=== PATIENT | female | born 1955 | race Caucasian/White ===

== ENCOUNTER 2019-10-30 14:07 | Emergency (ER) | payer OTHER, SELFPAY ==
[2019-10-30] VITALS (14 sets, daily range): BP systolic 139–168; BP diastolic 79–107; PULSE 64–95; RESP 14–33; TEMP 36.8; O2SAT 93–98; BMI 32.5
--- NOTE | 2019-10-30 14:33 | DI.RAD.S_ITS ---
PROCEDURE: XR CHEST 1V INDICATIONS: cough, palpitations TECHNIQUE: One view of the chest was acquired. COMPARISON: None. FINDINGS: Surgical changes and devices: None. Lungs and pleura: An incomplete inspiratory result is noted, causing a crowded appearance to the lung markings. No focal infiltrates are seen. No pneumothorax or significant pleural effusions are seen. Mediastinum: The cardiac contours are within normal limits. The aorta demonstrates calcification and tortuosity. Bones and chest wall: Age-appropriate bony degenerative changes are seen. No suspicious bony lesions. Overlying soft tissues appear unremarkable. IMPRESSION: Unremarkable portable chest for age, without focal infiltrates seen. Dictated by: Rico Ojeda M.D. on 10/30/2019 at 15:00 Approved by: Rico Ojeda M.D. on 10/30/2019 at 15:00
--- NOTE | 2019-10-30 14:35 | DI.US.S_ITS ---
PROCEDURE: US PERIPH VENOUS UP EXTREM LT INDICATIONS: LEFT ARM REDNESS, PAIN TECHNIQUE: Real-time imaging, as well as color and pulse Doppler interrogation, was performed of the left upper extremity deep veins from the inferior neck to the antecubital fossa. COMPARISON: [facility], CR, XR CHEST 1V, 10/30/2019, 14:57. FINDINGS: The internal jugular vein, visualized portions of the subclavian vein, axillary, and brachial veins are free of intraluminal thrombus. Where physically possible, the veins are normally compressible. Color and pulse Doppler demonstrate normal intraluminal flow, with expected phasicity and pulsatility. Additional scanning of the cephalic and basilic veins of the superficial system demonstrate normal compressibility, without thrombus. Soft tissue edema can be seen at the area of clinical redness. IMPRESSION: Negative for deep venous thrombosis. Note: Concordant preliminary findings given by the driller hand upon the completion of the examination to JANES Epps at 4:22 PM on October 30, 2019. Dictated by: Rico Ojeda M.D. on 10/30/2019 at 15:32 Approved by: Rico Ojeda M.D. on 10/30/2019 at 15:33
[2019-10-30 14:47] LABS: INR 0.9 (0.9-1.3); Prothrombin Time 10.7 SECONDS (10.1-12.7)
[2019-10-30 14:49] LABS: PTT Partial Thromboplastin Tim 30 SECONDS (26.4-36.2)
[2019-10-30 14:50] LABS: Alanine Aminotransferase 24 IU/L (<35); Albumin 4.5 g/dL (3.5-5.0); Albumin Globulin Ratio 1.3 (1.0-2.8); Alkaline Phosphatase 78 U/L (38-126); Aspartate Aminotransferase 32 IU/L (14-36); BUN Creatinine Ratio 21.2 (6-22); Bilirubin Total 0.5 mg/dL (0.2-1.3); Blood Urea Nitrogen 18 mg/dL (7-17); Calcium 10.7 mg/dL (8.4-10.2); Carbon Dioxide 25 mmol/L (22-32); Chloride 107 mmol/L (98-107); Creatine Kinase 39 U/L (30-135); Estimated Glomerular Filt Rate > 60.0 mL/min (>60); Globulin 3.4 g/dL (1.7-4.1); Glucose 93 mg/dL (80-110); HEMOLYSIS 27 (0-50); Lipase 80 U/L (23-300); Potassium 4.1 mmol/L (3.4-5.1); Sodium 140 mmol/L (137-145); Total Protein 7.9 g/dL (6.3-8.2)
[2019-10-30 14:51] LABS: Lactate (Lactic Acid) 0.8 mmol/L (0.7-2.1)
[2019-10-30 14:52] LABS: Bacteria Urine None Seen; RBC Urine None Seen (0-5/HPF); WBC Urine None Seen (0-5/HPF)
[2019-10-30 14:52] LABS: Add Manual Diff / Slide Review NO; Basophils Absolute Auto 100 /uL (0-100); Basophils Percent Auto 1.4 % (0-2); Eosinophils Absolute Auto 100 /uL (0-450); Eosinophils Percent Auto 1.1 % (2-4); Hematocrit 43.9 % (36-46); Lymphocytes Absolute Auto 2300 /uL (1100-4500); Lymphocytes Percent Auto 32.2 % (25-40); Mean Corpuscular HGB Conc 34.1 % (30-36); Mean Corpuscular Hemoglobin 28.8 PG (26-34); Mean Corpuscular Volume 84.5 fL (80-100); Monocytes Absolute Auto 500 /uL (0-900); Monocytes Percent Auto 6.5 % (3-14); Neutrophils Absolute Auto 4200 /uL (1500-7000); Neutrophils Percent Auto 58.8 % (50-75); Platelet Count 138 X10^3/uL (150-400); Red Cell Distribution Width 13.4 % (11.6-14.8); White Blood Cell Count 7.1 X10^3/uL (4.5-11.0)
[2019-10-30 15:02] LABS: NT-proBNP (BNP-Adult 18+) 270 pg/mL (<125); Troponin I < 0.012 ng/mL (0.01-0.034)
[2019-10-30 15:02] LABS: Appearance Urine UA CLEAR; Bilirubin Urine UA NEGATIVE (NEGATIVE); Color Urine UA YELLOW; Glucose Urine UA NEGATIVE (Negative); Ketones Urine UA NEGATIVE (NEGATIVE); Leukocyte Esterase Urine UA NEGATIVE (NEGATIVE); Nitrite Urine UA NEGATIVE (Negative); Occult Blood Urine UA NEGATIVE (Negative); Protein Urine UA NEGATIVE (Negative); Specific Gravity Urine UA 1.015 (1.000-1.035); Urobilinogen Urine UA 0.2 E.U./dL (0.2)
[2019-10-30 15:03] LABS: Culture Indicated Urine Cult Not Indicated; pH Urine UA 7.5 (4.5-8.0)
[2019-10-30 15:32] LABS: Procalcitonin < 0.05 ng/mL (<0.5)
[2019-10-30 15:37] LABS: D Dimer 209 ng/mL (<230)
[2019-10-30] MEDS: KETOROLAC 60 MG/2 ML VIAL 15 MG IV (16:13)
[2019-10-30] MEDS: ACETAMINOPHEN 325 MG TABLET 650 MG PO (16:13)
[2019-10-30] MEDS: SODIUM CHLORIDE 0.9% 1,000 ML 125 ML IV (16:14)
[2019-10-30 18:08] LABS: Creatine Kinase 36 U/L (30-135)
[2019-10-30 18:21] LABS: Troponin I < 0.012 ng/mL (0.01-0.034)
[2019-10-30] MEDS: DOXYCYCLINE HYCLATE 100 MG TABLET PO (18:42)
--- NOTE | 2019-10-30 18:58 | ED_ITS ---
HPI - Arrhythmia/Palpitations <JANES Epps - Last Filed: 10/30/19 21:51> General Chief Complaint: Arrhythmia/Palpitations Stated Complaint: fatigue, bruising left arm, sweating Time Seen by Provider: 10/30/19 14:10 Source: patient Mode of arrival: Ambulatory Limitations: no limitations History of Present Illness HPI narrative: This is a 64-year-old female, former smoker, who has history of SVT with cardiac ablation remotely and hypothyroidism presents to ED with chief complain of left upper arm redness for last 3 weeks. Patient noticed some discomfort today in biceps area with feeling fatigued and tired with low energy. Patient denies any open skin or bite granados. Patient denies fever, chills, nausea or vomiting. Patient denies chest pain but noticed exertional diapho resis yesterday when she attempted mow the lawn. Reports felt like she had low heart rate and irregularity. She reports mild nonproductive cough but denies dyspnea or dizziness. She was not able to mow much at all due to extreme fatigue. Also, she reports she has been very emotional. Patient denies urinary symptoms, diarrhea, abdominal pain. Patient travel to [place] by driving in July 2019 and noticed some leg swelling which resolved shortly after. Patient denies redness or calf pain. She denies known exposure to Covid 19 infection. Patient denies blood in her stool or urine. She denies recent prolonged bed rest, surgery, estrogen hormone replacement, history of cancer. She takes levothyroxine 75 mcg daily. She does not have primary care physician after he he retired but set up an appointment with Dr. Lai Marshall in December 2019. Related Data Home Medications Medication Instructions Recorded Confirmed levothyroxine 75 mcg PO QAM 10/30/19 10/30/19 Previous Rx's Medication Instructions Recorded doxycycline hyclate 100 mg PO BID 7 Days #14 cap 10/30/19 Allergies Allergy/AdvReac Type Severity Reaction Status Date / Time Sulfa (Sulfonamide Allergy Intermediate Hives Verified 10/30/19 14:45 Antibiotics) Review of Systems <JANES Epps - Last Filed: 10/30/19 21:51> Review of Systems Narrative: General: See HPI HEENT: Denies sinus pain, ear pain, sore throat, difficulty swallowing, dizziness. Respiratory: Denies dyspnea, cough, wheezing, hemoptysis, sputum. Cardiovascular: See HPI Gastrointestinal: Denies nausea, vomiting, abdominal pain, diarrhea, constipation, melena. : Denies dysuria, frequency, incontinence, hematuria, urinary retention. Musculoskeletal: See HPI Skin: See HPI Neurologic: Denies weakness, headache, numbness, change in speech, confusion, seizures, incoordination. Psychiatric: No concerning psychosocial issues. 12-point review of systems is negative except for those stated above. Patient History <JANES Epps - Last Filed: 10/30/19 21:51> Medical History Hypothyroid (Acute) SVT (supraventricular tachycardia) (Acute) Surgical History H/O cardiac radiofrequency ablation (Acute) H/O total hysterectomy (Acute) Social History Smoking Status: Former smoker Smoking Status: Former smoker alcohol intake frequency: a few times a month Substance Use Type: marijuana Exam <JANES Epps - Last Filed: 10/30/19 21:51> Narrative Exam Narrative: GEN: Alert, oriented x 3, well appearing and nourished, and appears to be anxious. Head: Normal cephalic, atraumatic. No scalp or temporal tenderness, palpable mass or rash. EYES: Pupils are equal, round, and reactive to light and accommodation. Extraocular muscles are intact bilaterally. There is no subconjunctival hemorrh age, exudate and sclera non-icteric. ENT: Hearing grossly intact. Nose without bleeding, purulent discharge or deviation. Mucous membrane moist, no mucosal lesion. Throat without erythema, tonsillar hypertrophy or exudate. Uvula in midline, airway patent. Neck: Trachea in midline. No JVD, non-tender without lymphadenopathy. No masses or thyroid megaly. Supple, non-tender and no meningeal signs. CARDIAC: Normal regular rate and rhythm without murmurs, gallops, or rubs. No chest wall tenderness. No peripheral edema, cyanosis or pallor. Capillary refill is less than 2 seconds. RESPIRATORY: Lungs are clear to auscultate bilaterally. No cough, wheezes, rales, or rhonchi. No stridor, respiratory distress, increase work of breathing, or accessary muscle used. ABD: Abdomen soft, nontender and non-distended. No guarding or rebound tenderness to palpate. Bowel sounds are normal in all 4 quadrants. There is no palpable masses or organomegaly. EXT: Full painless ROM of all extremities with no loss of sensation, strength, effusion or edema. SKIN: Left upper arm erythematous, feels full to palpate, warmth, mild tenderness to palpate. Reports left axilla lymphadenopathy per palpation. Warm, dry, normal color for patient. BACK: Nontender without deformity or crepitance. No flank tenderness. NEUROLOGICAL: Alert and oriented to place, time and person. Sensation and motor function intact bilaterally. No facial droops, dysphasia. PSYCHIATRIC: Good judgement and reason, without hallucinations, tearful during exam stating she is worried about her dog if anything happens to her. Patient is not suicidal. Initial Vital Signs Initial Vital Signs: Vital Signs Pulse Rate 90 10/30/19 14:15 Respiratory Rate 16 10/30/19 14:15 Blood Pressure 148/103 H 10/30/19 14:15 Pulse Oximetry 97 10/30/19 14:15 <Tao Santana MD - Last Filed: 11/04/19 21:16> Initial Vital Signs Initial Vital Signs: Vital Signs Pulse Rate 90 10/30/19 14:15 Respiratory Rate 16 10/30/19 14:15 Blood Pressure 148/103 H 10/30/19 14:15 Pulse Oximetry 97 10/30/19 14:15 Scores <JANES Epps - Last Filed: 10/30/19 21:51> GCS [place] coma scale eye opening: Spontaneous [place] coma scale verbal response: Orientated [place] coma scale motor response: Obey commands [place] coma scale total score: 15 HEART Score Heart Score history: Slightly Suspicious Heart Score EKG: Normal Heart Score Age: 45-64 years old Heart Score risk factors: 1-2 risk factors Heart Score troponin: < or = to normal limit Heart Score Total: 2 NIH Stroke Scale Level of Conciousness: Alert, keenly responsive Ask month/age: Answers both questions correctly. Open/close eyes, close hand: Performs both tasks correctly Best gaze horizontal: Normal Visual ha: No visual loss Facial palsy: Normal symetrical movement Left arm drift: No drift for full 10 sec Right arm drift: No drift for full 10 sec Left leg drift: No drift for full 10 sec Right leg drift: No drift for full 10 sec Limb ataxia: Absent Sensory on face/arms/legs: Normal, no sensory loss Best language: No aphasia, normal Dysarthria: Normal Extinction or inattention: No abnormality Total NIH Stroke scale score: 0 PERC Score Age greater than or equal to 50 years: Yes Heart rate greater than or equal to 100 bpm: No Room Air O2 Sat less than 95%: Yes Unilateral leg swelling: No Recent trauma or surgery: No Hemoptysis: No Prior PE or DVT: No Hormone Use: No Total PERC Score: 2 qSOFA Altered Mental Status (GCS <15): No Respiratory rate greater than/equal to 22: No Systolic blood pressure less than or equal to 100: No qSOFA Total: 0 0-1 Not High Risk 1-3 High risk Wells' Criteria for PE Clinical signs and symptoms of DVT: Yes PE is #1 Dx or equally likely: No Heart rate > 100: No Immobilization at least 3 days or surg in previous 4 weeks: No History of PE or DVT: No Hemoptysis: No Malignancy w/Treatment within 6 months or palliative: No Wells' PE Score total: 3 Wells' Criteria for DVT Active Cancer (Treatment within 6 months): No Bedridden recently >3 days or major surgery within 4 weeks: No Calf Swelling >3cm compared to other leg: No Collateral (nonvericose) superficial veins present: No Entire leg swollen: No Localized tenderness along the deep vein system: Yes Pitting edema, confined to symtomatic leg: Yes Paralysis, paresis, or recent plaster immobilization of ext: No Previously documented DVT: No Alternative dx to DVT as likely or more likely: Yes Wells' criteria for DVT: 0 Course <JANES Epps - Last Filed: 10/30/19 21:51> Orders Ordered: Discontinued Medications Acetaminophen (Tylenol) 650 mg PO NOW ONE Stop: 10/30/19 15:40 Last Admin: 10/30/19 16:13 Dose: 650 mg Documented by: NICOLAS Doxycycline Hyclate (Vibramycin) 100 mg PO NOW ONE Stop: 10/30/19 18:34 Last Admin: 10/30/19 18:42 Dose: 100 mg Documented by: NICOLAS Sodium Chloride (Normal Saline 0.9%) 1,000 mls @ 125 mls/hr IV CONT LON Last Infusion: 10/30/19 18:37 Dose: 0 mls/hr Documented by: Admin: 10/30/19 16:14 Dose: 125 mls/hr Documented by: NICOLAS Ketorolac Tromethamine (Toradol) 15 mg IV NOW ONE Stop: 10/30/19 15:40 Last Admin: 10/30/19 16:13 Dose: 15 mg Documented by: NICOLAS Vital Signs Vital signs: Vital Signs - 8 hr 10/30/19 14:15 10/30/19 14:26 10/30/19 14:30 Temperature 98.3 F Pulse Rate 90 94 H 82 Respiratory Rate 16 20 19 Blood Pressure 148/103 H Blood Pressure [Right Arm] 148/103 H 168/99 H Pulse Oximetry 97 98 96 10/30/19 14:45 10/30/19 15:00 10/30/19 15:15 Temperature Pulse Rate 81 74 73 Respiratory Rate 15 14 24 Blood Pressure Blood Pressure [Right Arm] 159/92 H 152/92 H 159/96 H Pulse Oximetry 97 95 95 10/30/19 15:30 10/30/19 16:00 10/30/19 16:15 Temperature Pulse Rate 81 80 95 H Respiratory Rate 26 H 23 33 H Blood Pressure Blood Pressure [Right Arm] 144/90 H 158/79 H 155/107 H Pulse Oximetry 93 95 97 10/30/19 16:30 10/30/19 17:45 10/30/19 18:00 Temperature Pulse Rate 69 64 65 Respiratory Rate 15 14 17 Blood Pressure Blood Pressure [Right Arm] 147/91 H 152/89 H 139/95 H Pulse Oximetry 97 96 94 10/30/19 18:15 10/30/19 18:41 Temperature Pulse Rate 64 77 Respiratory Rate 17 32 H Blood Pressure Blood Pressure [Right Arm] 150/84 H 151/94 H Pulse Oximetry 95 96 <Tao Santana MD - Last Filed: 11/04/19 21:16> Orders Ordered: Discontinued Medications Acetaminophen (Tylenol) 650 mg PO NOW ONE Stop: 10/30/19 15:40 Last Admin: 10/30/19 16:13 Dose: 650 mg Documented by: NICOLAS Doxycycline Hyclate (Vibramycin) 100 mg PO NOW ONE Stop: 10/30/19 18:34 Last Admin: 10/30/19 18:42 Dose: 100 mg Documented by: NICOLAS Sodium Chloride (Normal Saline 0.9%) 1,000 mls @ 125 mls/hr IV CONT LON Last Infusion: 10/30/19 18:37 Dose: 0 mls/hr Documented by: Admin: 10/30/19 16:14 Dose: 125 mls/hr Documented by: NICOLAS Ketorolac Tromethamine (Toradol) 15 mg IV NOW ONE Stop: 10/30/19 15:40 Last Admin: 10/30/19 16:13 Dose: 15 mg Documented by: NICOLAS Vital Signs Vital signs: Vital Signs - 8 hr 10/30/19 14:15 10/30/19 14:26 10/30/19 14:30 Temperature 98.3 F Pulse Rate 90 94 H 82 Respiratory Rate 16 20 19 Blood Pressure 148/103 H Blood Pressure [Right Arm] 148/103 H 168/99 H Pulse Oximetry 97 98 96 10/30/19 14:45 10/30/19 15:00 10/30/19 15:15 Temperature Pulse Rate 81 74 73 Respiratory Rate 15 14 24 Blood Pressure Blood Pressure [Right Arm] 159/92 H 152/92 H 159/96 H Pulse Oximetry 97 95 95 10/30/19 15:30 10/30/19 16:00 10/30/19 16:15 Temperature Pulse Rate 81 80 95 H Respiratory Rate 26 H 23 33 H Blood Pressure Blood Pressure [Right Arm] 144/90 H 158/79 H 155/107 H Pulse Oximetry 93 95 97 10/30/19 16:30 10/30/19 17:45 10/30/19 18:00 Temperature Pulse Rate 69 64 65 Respiratory Rate 15 14 17 Blood Pressure Blood Pressure [Right Arm] 147/91 H 152/89 H 139/95 H Pulse Oximetry 97 96 94 10/30/19 18:15 10/30/19 18:41 Temperature Pulse Rate 64 77 Respiratory Rate 17 32 H Blood Pressure Blood Pressure [Right Arm] 150/84 H 151/94 H Pulse Oximetry 95 96 MDM - Arrhythmia/Palpitations <JANES Epps - Last Filed: 10/30/19 21:51> Differential Diagnosis Differential diagnosis: Likely anxiety and other (DVT, atypical chest pain, SC, PE, arrhythmia, cellulitis) Medical Records Attestation: I reviewed the patient's medical records. Lab Data Attestation: I reviewed the patient's lab results. Result diagrams: 10/30/19 14:33 10/30/19 14:33 Labs: Lab Results 10/30/19 10/30/19 10/30/19 Range/Units 14:33 14:33 14:33 WBC 7.1 (4.5-11.0) X10^3/uL RBC 5.20 (4.0-5.2) X10^6/uL Hgb 15.0 (12.0-16.0) g/dL Hct 43.9 (36-46) % MCV 84.5 (80-100) fL MCH 28.8 (26-34) PG MCHC 34.1 (30-36) % RDW 13.4 (11.6-14.8) % Plt Count 138 L (150-400) X10^3/uL Neut % (Auto) 58.8 (50-75) % Lymph % (Auto) 32.2 (25-40) % [place] % (Auto) 6.5 (3-14) % Eos % (Auto) 1.1 L (2-4) % Baso % (Auto) 1.4 (0-2) % Neut # (Auto) 4200 (3111-3163) /uL Lymph # (Auto) 2300 (7416-2446) /uL [place] # (Auto) 500 (0-900) /uL Eos # (Auto) 100 (0-450) /uL Baso # (Auto) 100 (0-100) /uL PT 10.7 (10.1-12.7) SECONDS INR 0.9 (0.9-1.3) APTT 30 (26.4-36.2) SECONDS D-Dimer (<230) ng/mL Sodium 140 (137-145) mmol/L Potassium 4.1 (3.4-5.1) mmol/L Chloride 107 (98-107) mmol/L Carbon Dioxide 25 (22-32) mmol/L BUN 18 H (7-17) mg/dL Creatinine 0.85 (0.52-1.04) mg/dL Estimated GFR > 60.0 (>60) mL/min BUN/Creatinine Ratio 21.2 (6-22) Glucose 93 (80-110) mg/dL Lactate (0.7-2.1) mmol/L Calcium 10.7 H (8.4-10.2) mg/dL Total Bilirubin 0.5 (0.2-1.3) mg/dL AST 32 (14-36) IU/L ALT 24 (<35) IU/L Alkaline Phosphatase 78 (38-126) U/L Total Creatine Kinase 39 (30-135) U/L CK-MB (CK-2) TNP CK-MB (CK-2) Rel Index TNP Troponin I < 0.012 (0.01-0.034) ng/mL NT-Pro-B Natriuret Pep 270 H (<125) pg/mL Total Protein 7.9 (6.3-8.2) g/dL Albumin 4.5 (3.5-5.0) g/dL Globulin 3.4 (1.7-4.1) g/dL Albumin/Globulin Ratio 1.3 (1.0-2.8) Lipase 80 (23-300) U/L Procalcitonin (<0.5) ng/mL Urine Color Urine Appearance Urine pH (4.5-8.0) Ur Specific [place] (1.000-1.035) Urine Protein (Negative) Urine Glucose (UA) (Negative) g/dL Urine Ketones (NEGATIVE) Urine Occult Blood (Negative) Urine Nitrate (Negative) Urine Bilirubin (NEGATIVE) Urine Urobilinogen (0.2) E.U./dL Ur Leukocyte Esterase (NEGATIVE) Urine RBC (0-5/HPF) Urine WBC (0-5/HPF) Urine Bacteria (None) Ur Culture Indicated? 10/30/19 10/30/19 10/30/19 Range/Units 14:33 14:33 14:33 WBC (4.5-11.0) X10^3/uL RBC (4.0-5.2) X10^6/uL Hgb (12.0-16.0) g/dL Hct (36-46) % MCV (80-100) fL MCH (26-34) PG MCHC (30-36) % RDW (11.6-14.8) % Plt Count (150-400) X10^3/uL Neut % (Auto) (50-75) % Lymph % (Auto) (25-40) % [place] % (Auto) (3-14) % Eos % (Auto) (2-4) % Baso % (Auto) (0-2) % Neut # (Auto) (0433-7587) /uL Lymph # (Auto) (0102-9943) /uL [place] # (Auto) (0-900) /uL Eos # (Auto) (0-450) /uL Baso # (Auto) (0-100) /uL PT (10.1-12.7) SECONDS INR (0.9-1.3) APTT (26.4-36.2) SECONDS D-Dimer 209 (<230) ng/mL Sodium (137-145) mmol/L Potassium (3.4-5.1) mmol/L Chloride (98-107) mmol/L Carbon Dioxide (22-32) mmol/L BUN (7-17) mg/dL Creatinine (0.52-1.04) mg/dL Estimated GFR (>60) mL/min BUN/Creatinine Ratio (6-22) Glucose (80-110) mg/dL Lactate 0.8 (0.7-2.1) mmol/L Calcium (8.4-10.2) mg/dL Total Bilirubin (0.2-1.3) mg/dL AST (14-36) IU/L ALT (<35) IU/L Alkaline Phosphatase (38-126) U/L Total Creatine Kinase (30-135) U/L CK-MB (CK-2) CK-MB (CK-2) Rel Index Troponin I (0.01-0.034) ng/mL NT-Pro-B Natriuret Pep (<125) pg/mL Total Protein (6.3-8.2) g/dL Albumin (3.5-5.0) g/dL Globulin (1.7-4.1) g/dL Albumin/Globulin Ratio (1.0-2.8) Lipase (23-300) U/L Procalcitonin < 0.05 (<0.5) ng/mL Urine Color Urine Appearance Urine pH (4.5-8.0) Ur Specific [place] (1.000-1.035) Urine Protein (Negative) Urine Glucose (UA) (Negative) g/dL Urine Ketones (NEGATIVE) Urine Occult Blood (Negative) Urine Nitrate (Negative) Urine Bilirubin (NEGATIVE) Urine Urobilinogen (0.2) E.U./dL Ur Leukocyte Esterase (NEGATIVE) Urine RBC (0-5/HPF) Urine WBC (0-5/HPF) Urine Bacteria (None) Ur Culture Indicated? 10/30/19 10/30/19 Range/Units 14:48 17:48 WBC (4.5-11.0) X10^3/uL RBC (4.0-5.2) X10^6/uL Hgb (12.0-16.0) g/dL Hct (36-46) % MCV (80-100) fL MCH (26-34) PG MCHC (30-36) % RDW (11.6-14.8) % Plt Count (150-400) X10^3/uL Neut % (Auto) (50-75) % Lymph % (Auto) (25-40) % [place] % (Auto) (3-14) % Eos % (Auto) (2-4) % Baso % (Auto) (0-2) % Neut # (Auto) (3481-5594) /uL Lymph # (Auto) (2656-2182) /uL [place] # (Auto) (0-900) /uL Eos # (Auto) (0-450) /uL Baso # (Auto) (0-100) /uL PT (10.1-12.7) SECONDS INR (0.9-1.3) APTT (26.4-36.2) SECONDS D-Dimer (<230) ng/mL Sodium (137-145) mmol/L Potassium (3.4-5.1) mmol/L Chloride (98-107) mmol/L Carbon Dioxide (22-32) mmol/L BUN (7-17) mg/dL Creatinine (0.52-1.04) mg/dL Estimated GFR (>60) mL/min BUN/Creatinine Ratio (6-22) Glucose (80-110) mg/dL Lactate (0.7-2.1) mmol/L Calcium (8.4-10.2) mg/dL Total Bilirubin (0.2-1.3) mg/dL AST (14-36) IU/L ALT (<35) IU/L Alkaline Phosphatase (38-126) U/L Total Creatine Kinase 36 (30-135) U/L CK-MB (CK-2) TNP CK-MB (CK-2) Rel Index TNP Troponin I < 0.012 (0.01-0.034) ng/mL NT-Pro-B Natriuret Pep (<125) pg/mL Total Protein (6.3-8.2) g/dL Albumin (3.5-5.0) g/dL Globulin (1.7-4.1) g/dL Albumin/Globulin Ratio (1.0-2.8) Lipase (23-300) U/L Procalcitonin (<0.5) ng/mL Urine Color Yellow Urine Appearance Clear Urine pH 7.5 (4.5-8.0) Ur Specific [place] 1.015 (1.000-1.035) Urine Protein Negative (Negative) Urine Glucose (UA) Negative (Negative) g/dL Urine Ketones Negative (NEGATIVE) Urine Occult Blood Negative (Negative) Urine Nitrate Negative (Negative) Urine Bilirubin Negative (NEGATIVE) Urine Urobilinogen 0.2 (0.2) E.U./dL Ur Leukocyte Esterase Negative (NEGATIVE) Urine RBC None seen (0-5/HPF) Urine WBC None seen (0-5/HPF) Urine Bacteria None seen (None) Ur Culture Indicated? Cult not indicated Imaging Data Chest x-ray: Radiologist's Impresson: [place] [address] XRay Report Signed Patient: Shaunna Kasper#: [id number] : 6Acct:[id number] Age/Sex: 64 / FDate of Service: 10/30/19 Loc: ED Accession Number: [id number] Procedure: XR chest 1V Ordering Provider: Samuel Shrestha PROCEDURE: XR CHEST 1V INDICATIONS: cough, palpitations TECHNIQUE: One view of the chest was acquired. COMPARISON: None. FINDINGS: Surgical changes and devices: None. Lungs and pleura: An incomplete inspiratory result is noted, causing a crowded appearance to the lung markings. No focal infiltrates are seen. No pneumothorax or significant pleural effusions are seen. Mediastinum: The cardiac contours are within normal limits. The aorta demonstrates calcification and tortuosity. Bones and chest wall: Age-appropriate bony degenerative changes are seen. No suspicious bony lesions. Overlying soft tissues appear unremarkable. IMPRESSION: Unremarkable portable chest for age, without focal infiltrates seen. Dictated by: Rico Ojeda M.D. on 10/30/2019 at 15:00 Approved by: Rico Ojeda M.D. on 10/30/2019 at 15:00 US - DVT: Radiologist's Impresson: Shaunna Kasper 64 F 1955 [place] [address] Ultrasound Report Signed Patient: Shaunna KasperMR#: [id number] : 1955cct:[id number] Age/Sex: 64 / FDate of Service: 10/30/19 Loc: ED Accession Number: [id number] Procedure: US periph venous up extrem lt Ordering Provider: Samuel Shrestha PROCEDURE: US PERIPH VENOUS UP EXTREM LT INDICATIONS: LEFT ARM REDNESS, PAIN TECHNIQUE: Real-time imaging, as well as color and pulse Doppler interrogation, was performed of the left upper extremity deep veins from the inferior neck to the antecubital fossa. COMPARISON: [facility], CR, XR CHEST 1V, 10/30/2019, 14:57. FINDINGS: The internal jugular vein, visualized portions of the subclavian vein, axillary, and brachial veins are free of intraluminal thrombus. Where physically possible, the veins are normally compressible. Color and pulse Doppler demonstrate normal intraluminal flow, with expected phasicity and pulsatility. Additional scanning of the cephalic and basilic veins of the superficial system demonstrate normal compressibility, without thrombus. Soft tissue edema can be seen at the area of clinical redness. IMPRESSION: Negative for deep venous thrombosis. Note: Concordant preliminary findings given by the yarn preparation supervisor upon the completion of the examination to JANES Epps at 4:22 PM on October 30, 2019. Dictated by: Rico Ojeda M.D. on 10/30/2019 at 15:32 Approved by: Rico Ojeda M.D. on 10/30/2019 at 15:33 ECG Data Attestation: I personally reviewed and interpreted this ECG as follows: Prior ECG tracings: not available for review Interpretation: EKG #1 Sinus rhythm rate at 79. Left deviated axis. ID interval 148, QRS duration 100, QT/QTC 400/458. No acute ST changes. EKG #2 Sinus rhythm rate at 61. Left deviated axis. Pr interval 152, QRS duration 98, QT/QTC 422/424. No acute ST changes. No significant changes from previous EKG that was taken today. [facility] Narrative Medical decision making narrative: This is a 64-year-old female who presents to ED with left upper arm pain, swelling, redness with fatigue, cold sweats with exertional activities with feeling of heart irregularity, emotional and worrisome of her current health condition. EKG is sinus rhythm without acute ST changes. Physical exam is concerned for cellulitis versus DVT in left upper arm. Patient's heart score is 2, qSOFA is 0, Wells score for DVT is 0 and PE is 3 (intermediate probability). PERC score 2. CBC shows no leukocytosis but mildly decreased platelet of 138. Negative with D- dimer of 209. CMP was unremarkable. Troponin was negative and proBNP was 270. Negative procalcitonin of last than 0.05. UA is negative for urine nitrate or esterase indicating no infection. Second troponin was also within normal limits with sinus rhythm on 2nd EKG. Although patient did not have dyspnea, pleuritic chest pain, cough, orthopnea, leg swelling, hemoptysis or wheeze, patient reports doomed feeling, screening test done wit D-dimer for PE with negative findings for her age. No further advanced imaging test was done to rule out PE. Chest x-ray was negative for acute findings such as infiltrates, pleural effusion, pneumothorax. Ultrasound of left upper extremity does not indicate DVT. Patient was evaluated several times during ED stay. Findings were discussed with the patient and patient was apprehensive of mildly elevated BP (in 140/80's) from her baseline (110's/80) her bedside monitor. Patient is afebrile. Within normal heart rate. Patient had on labored easy breathing without respiratory distress or tachypnea that at witnessed. With above findings, patient was treated for cellulitis on left upper extremity and 1st dose of doxycycline has been given while in ED and she was discharged to home with 7 day course of b.i.d. dose. Return precautions were discussed with the patient and patient advised to follow-up setting up PCP sooner than in December and to check TSH level in the near future. Patient reports overly improved symptoms with IV fluid, Toradol and Tylenol that was provided in ED. patient verbalized understanding and agreement with the treatment plan. <Tao Santana MD - Last Filed: 11/04/19 21:16> Lab Data Labs: Lab Results 10/30/19 10/30/19 10/30/19 Range/Units 14:33 14:33 14:33 WBC 7.1 (4.5-11.0) X10^3/uL RBC 5.20 (4.0-5.2) X10^6/uL Hgb 15.0 (12.0-16.0) g/dL Hct 43.9 (36-46) % MCV 84.5 (80-100) fL MCH 28.8 (26-34) PG MCHC 34.1 (30-36) % RDW 13.4 (11.6-14.8) % Plt Count 138 L (150-400) X10^3/uL Neut % (Auto) 58.8 (50-75) % Lymph % (Auto) 32.2 (25-40) % [place] % (Auto) 6.5 (3-14) % Eos % (Auto) 1.1 L (2-4) % Baso % (Auto) 1.4 (0-2) % Neut # (Auto) 4200 (5649-7387) /uL Lymph # (Auto) 2300 (7663-9474) /uL [place] # (Auto) 500 (0-900) /uL Eos # (Auto) 100 (0-450) /uL Baso # (Auto) 100 (0-100) /uL PT 10.7 (10.1-12.7) SECONDS INR 0.9 (0.9-1.3) APTT 30 (26.4-36.2) SECONDS D-Dimer (<230) ng/mL Sodium 140 (137-145) mmol/L Potassium 4.1 (3.4-5.1) mmol/L Chloride 107 (98-107) mmol/L Carbon Dioxide 25 (22-32) mmol/L BUN 18 H (7-17) mg/dL Creatinine 0.85 (0.52-1.04) mg/dL Estimated GFR > 60.0 (>60) mL/min BUN/Creatinine Ratio 21.2 (6-22) Glucose 93 (80-110) mg/dL Lactate (0.7-2.1) mmol/L Calcium 10.7 H (8.4-10.2) mg/dL Total Bilirubin 0.5 (0.2-1.3) mg/dL AST 32 (14-36) IU/L ALT 24 (<35) IU/L Alkaline Phosphatase 78 (38-126) U/L Total Creatine Kinase 39 (30-135) U/L CK-MB (CK-2) TNP CK-MB (CK-2) Rel Index TNP Troponin I < 0.012 (0.01-0.034) ng/mL NT-Pro-B Natriuret Pep 270 H (<125) pg/mL Total Protein 7.9 (6.3-8.2) g/dL Albumin 4.5 (3.5-5.0) g/dL Globulin 3.4 (1.7-4.1) g/dL Albumin/Globulin Ratio 1.3 (1.0-2.8) Lipase 80 (23-300) U/L Procalcitonin (<0.5) ng/mL Urine Color Urine Appearance Urine pH (4.5-8.0) Ur Specific [place] (1.000-1.035) Urine Protein (Negative) Urine Glucose (UA) (Negative) g/dL Urine Ketones (NEGATIVE) Urine Occult Blood (Negative) Urine Nitrate (Negative) Urine Bilirubin (NEGATIVE) Urine Urobilinogen (0.2) E.U./dL Ur Leukocyte Esterase (NEGATIVE) Urine RBC (0-5/HPF) Urine WBC (0-5/HPF) Urine Bacteria (None) Ur Culture Indicated? 10/30/19 10/30/19 10/30/19 Range/Units 14:33 14:33 14:33 WBC (4.5-11.0) X10^3/uL RBC (4.0-5.2) X10^6/uL Hgb (12.0-16.0) g/dL Hct (36-46) % MCV (80-100) fL MCH (26-34) PG MCHC (30-36) % RDW (11.6-14.8) % Plt Count (150-400) X10^3/uL Neut % (Auto) (50-75) % Lymph % (Auto) (25-40) % [place] % (Auto) (3-14) % Eos % (Auto) (2-4) % Baso % (Auto) (0-2) % Neut # (Auto) (6022-5432) /uL Lymph # (Auto) (3328-7666) /uL [place] # (Auto) (0-900) /uL Eos # (Auto) (0-450) /uL Baso # (Auto) (0-100) /uL PT (10.1-12.7) SECONDS INR (0.9-1.3) APTT (26.4-36.2) SECONDS D-Dimer 209 (<230) ng/mL Sodium (137-145) mmol/L Potassium (3.4-5.1) mmol/L Chloride (98-107) mmol/L Carbon Dioxide (22-32) mmol/L BUN (7-17) mg/dL Creatinine (0.52-1.04) mg/dL Estimated GFR (>60) mL/min BUN/Creatinine Ratio (6-22) Glucose (80-110) mg/dL Lactate 0.8 (0.7-2.1) mmol/L Calcium (8.4-10.2) mg/dL Total Bilirubin (0.2-1.3) mg/dL AST (14-36) IU/L ALT (<35) IU/L Alkaline Phosphatase (38-126) U/L Total Creatine Kinase (30-135) U/L CK-MB (CK-2) CK-MB (CK-2) Rel Index Troponin I (0.01-0.034) ng/mL NT-Pro-B Natriuret Pep (<125) pg/mL Total Protein (6.3-8.2) g/dL Albumin (3.5-5.0) g/dL Globulin (1.7-4.1) g/dL Albumin/Globulin Ratio (1.0-2.8) Lipase (23-300) U/L Procalcitonin < 0.05 (<0.5) ng/mL Urine Color Urine Appearance Urine pH (4.5-8.0) Ur Specific [place] (1.000-1.035) Urine Protein (Negative) Urine Glucose (UA) (Negative) g/dL Urine Ketones (NEGATIVE) Urine Occult Blood (Negative) Urine Nitrate (Negative) Urine Bilirubin (NEGATIVE) Urine Urobilinogen (0.2) E.U./dL Ur Leukocyte Esterase (NEGATIVE) Urine RBC (0-5/HPF) Urine WBC (0-5/HPF) Urine Bacteria (None) Ur Culture Indicated? 10/30/19 10/30/19 Range/Units 14:48 17:48 WBC (4.5-11.0) X10^3/uL RBC (4.0-5.2) X10^6/uL Hgb (12.0-16.0) g/dL Hct (36-46) % MCV (80-100) fL MCH (26-34) PG MCHC (30-36) % RDW (11.6-14.8) % Plt Count (150-400) X10^3/uL Neut % (Auto) (50-75) % Lymph % (Auto) (25-40) % [place] % (Auto) (3-14) % Eos % (Auto) (2-4) % Baso % (Auto) (0-2) % Neut # (Auto) (6294-7124) /uL Lymph # (Auto) (0796-5971) /uL [place] # (Auto) (0-900) /uL Eos # (Auto) (0-450) /uL Baso # (Auto) (0-100) /uL PT (10.1-12.7) SECONDS INR (0.9-1.3) APTT (26.4-36.2) SECONDS D-Dimer (<230) ng/mL Sodium (137-145) mmol/L Potassium (3.4-5.1) mmol/L Chloride (98-107) mmol/L Carbon Dioxide (22-32) mmol/L BUN (7-17) mg/dL Creatinine (0.52-1.04) mg/dL Estimated GFR (>60) mL/min BUN/Creatinine Ratio (6-22) Glucose (80-110) mg/dL Lactate (0.7-2.1) mmol/L Calcium (8.4-10.2) mg/dL Total Bilirubin (0.2-1.3) mg/dL AST (14-36) IU/L ALT (<35) IU/L Alkaline Phosphatase (38-126) U/L Total Creatine Kinase 36 (30-135) U/L CK-MB (CK-2) TNP CK-MB (CK-2) Rel Index TNP Troponin I < 0.012 (0.01-0.034) ng/mL NT-Pro-B Natriuret Pep (<125) pg/mL Total Protein (6.3-8.2) g/dL Albumin (3.5-5.0) g/dL Globulin (1.7-4.1) g/dL Albumin/Globulin Ratio (1.0-2.8) Lipase (23-300) U/L Procalcitonin (<0.5) ng/mL Urine Color Yellow Urine Appearance Clear Urine pH 7.5 (4.5-8.0) Ur Specific [place] 1.015 (1.000-1.035) Urine Protein Negative (Negative) Urine Glucose (UA) Negative (Negative) g/dL Urine Ketones Negative (NEGATIVE) Urine Occult Blood Negative (Negative) Urine Nitrate Negative (Negative) Urine Bilirubin Negative (NEGATIVE) Urine Urobilinogen 0.2 (0.2) E.U./dL Ur Leukocyte Esterase Negative (NEGATIVE) Urine RBC None seen (0-5/HPF) Urine WBC None seen (0-5/HPF) Urine Bacteria None seen (None) Ur Culture Indicated? Cult not indicated Discharge Plan Departure Patient Disposition: Home Clinical Impression: Cellulitis Qualifiers: Site of cellulitis: extremity Site of cellulitis of extremity: upper extremity Laterality: left Qualified Code(s): L03.114 - Cellulitis of left upper limb Discharge Date/Time: 10/30/19 19:10 Instructions: DI for Cellulitis -- Adult Activity Restrictions/Additional Instructions: You have been diagnosed with [ cellulitis. Your physical exam is consistent with cellulitis. Normal white count, indication of infection. Slightly low in platelets of 138 today, however your coag, clotting factors are within normal. Two sets of cardiac enzymes were negative. Pro BNP is mildly elevated of 270. Urine does not appears to be having an infection. A negative test for deep vein thrombosis on affected arm. Findings in chest x-ray. Your EKG is sinus rhythm.]. What to do: *Take your medications as directed. Please take doxycycline 100 mg twice a day for next 7 days. You can get sun sensitivity so please take precautions. You can use warm pack on affected arm for comfort and promote healing. You can take [id number] Tylenol and or Motrin as needed for discomfort. This medication has been transmitted to [facility] in [place]. *Follow up with your primary care provider in 2-3 days, call for an appointment. Let them know you were seen in the ED and that we asked you to be seen in follow up. Then, it probably need to check thyroid level. *Return to ED if you have any new, worsening, or concerning symptoms, such as [chest pain, breathing difficulty, unable to tolerate fluids, high fever, increasing pain or any acute concerns]. Prescriptions: New doxycycline hyclate 100 mg capsule 100 mg PO BID 7 Days Qty: 14 RF: 0 No Action levothyroxine 75 mcg tablet 75 mcg PO QAM RF: 0 Referrals: Lai Marshall MD [Non-Staff] -
== END 2019-10-30 19:10 | disposition home or self-care (01) ==
PROVIDERS: Emergency Provider Nurse Practitioner Family
DX: L03.114 Cellulitis of left upper limb (principal); I10 Essential (primary) hypertension; M79.602 Pain in left arm; R05 Cough; R00.2 Palpitations
CPT/HCPCS: 36415; 71045; 80053; 81001; 82550; 83605; 83690; 83880; 84145; 84484; 85025; 85379; 85610; 85730; 93005; 93971; 96361; 96374; 99284; J1885

== ENCOUNTER → 2021-02-02 13:56 | Outpatient (CLI) | payer OTHER, SELFPAY ==
--- NOTE | 2021-02-02 | DI.MG.S_ITS ---
BILATERAL DIGITAL SCREENING MAMMOGRAM 3D/2D WITH CAD: 02/02/2021 CLINICAL: Routine screening. Comparison is made to exams dated: 09/18/2015 mammogram, 12/01/2016 mammogram, and 02/08/2019 mammogram - [facility]. There are scattered fibroglandular elements in both breasts. Current study was also evaluated with a Computer Aided Detection (CAD) system. There is a new 0.7 cm oval focal asymmetry in the left breast at 6 o'clock middle depth. No other significant masses, calcifications, or other findings are seen in either breast. IMPRESSION: INCOMPLETE: NEEDS ADDITIONAL IMAGING EVALUATION The new 0.7 cm oval focal asymmetry in the left breast resembles a cyst or a lymph node and is indeterminate. Additional views with possible ultrasound are recommended. This exam was interpreted at Station ID: [id number]. NOTE: For mammograms, a report in lay terms will be sent to the patient. Approximately 15% of breast malignancies will not be visualized mammographically. In the management of a palpable breast mass, a negative mammogram must not discourage biopsy of a clinically suspicious lesion. Electronically Signed By: Keegan de leon/zion:02/04/2021 14:54:47 letter sent: Additional Imaging Needed ACR BI-RADS Category 0: Incomplete 3340F
== END ==
PROVIDERS: PCP Family Medicine; Referring Provider Family Medicine; Visit Provider Family Medicine
DX: Z12.31 Encounter for screening mammogram for malignant neoplasm of breast (principal)
CPT/HCPCS: 77063; 77067

== ENCOUNTER → 2021-03-06 13:21 | Outpatient (CLI) | payer MEDICARE, OTHER, SELFPAY ==
--- NOTE | 2021-03-06 | DI.US.S_ITS ---
ULTRASOUND OF LEFT BREAST: 03/06/2021 CLINICAL: Patient returns today to evaluate a focal asymmetry in the left breast. Comparison is made to exams dated: 03/06/2021 mammogram, 02/02/2021 mammogram - [facility], 02/08/2019 mammogram, 12/01/2016 mammogram, and 09/18/2015 mammogram - [facility]. Color flow ultrasound of the left breast was performed. Harris scale images of the real-time examination were reviewed. There is a 0.2 cm x 0.2 cm x 0.2 cm complex cyst in the left breast at 6 o'clock posterior depth 2 cm from the nipple. There also is a 0.9 cm x 0.4 cm x 0.9 cm irregular complex cyst in the left breast at 5 o'clock posterior depth 3 cm from the nipple. This irregular complex cyst displays posterior acoustic shadowing. IMPRESSION: PROBABLY BENIGN The 0.2 cm x 0.2 cm x 0.2 cm complex cyst in the left breast at 6 o'clock posterior depth is probably benign. Follow-up mammogram and ultrasound in 6 months is recommended. The 0.9 cm x 0.4 cm x 0.9 cm irregular complex cyst in the left breast at 5 o'clock posterior depth is probably benign. A follow-up left mammogram and an ultrasound in 6 months is recommended to demonstrate stability. This exam was interpreted at Station ID: [id number]. Electronically Signed By: Rony Sanchez acr/:03/06/2021 14:57:38 letter sent: Followup Recommended Ultrasound BI-RADS: 3 Probably benign
--- NOTE | 2021-03-06 | DI.MG.S_ITS ---
UNILATERAL LEFT DIGITAL DIAGNOSTIC MAMMOGRAM 3D/2D WITH ADDITIONAL VIEWS: 03/06/2021 CLINICAL: Additional evaluation requested from prior study. Comparison is made to exams dated: 02/02/2021 mammogram - [facility] and 02/08/2019 mammogram - [facility]. There are scattered fibroglandular elements in left breast. There is a 1.4 cm x 0.8 cm oval focal asymmetry in the left breast at 6 o'clock middle depth 8 cm from the nipple. This is seen in additional views. No other significant masses or calcifications are seen in the breast. IMPRESSION: INCOMPLETE: NEEDS ADDITIONAL IMAGING EVALUATION The 1.4 cm x 0.8 cm oval focal asymmetry in the left breast resembles a cyst or a lymph node and is indeterminate. An ultrasound is recommended. This exam was interpreted at Station ID: [id number]. NOTE: For mammograms, a report in lay terms will be sent to the patient. Approximately 15% of breast malignancies will not be visualized mammographically. In the management of a palpable breast mass, a negative mammogram must not discourage biopsy of a clinically suspicious lesion. Electronically Signed By: Rony Sanchez acr/:03/06/2021 14:11:41 Entry: - 03/07/2021 06:06:48 ACR BI-RADS Category 0: Incomplete [id number]
== END ==
PROVIDERS: PCP Family Medicine; Referring Provider Family Medicine; Visit Provider Family Medicine
DX: R92.8 Other abnormal and inconclusive findings on diagnostic imaging of breast (principal); N60.02 Solitary cyst of left breast
CPT/HCPCS: 76642; 77065; G0279

== ENCOUNTER → 2021-10-17 09:18 | Outpatient (CLI) | payer MEDICARE, OTHER, SELFPAY ==
--- NOTE | 2021-10-17 | DI.US.S_ITS ---
ULTRASOUND OF LEFT BREAST: 10/17/2021 CLINICAL: 6 month follow-up of cysts. Comparison is made to exams dated: 10/17/2021 mammogram, 03/06/2021 ultrasound, 03/06/2021 mammogram, 02/02/2021 mammogram - [facility], and 02/08/2019 mammogram - [facility]. Color flow and real-time ultrasound of the left breast were performed. Harris scale images of the real-time examination were reviewed. There is a 0.4 cm x 0.2 cm x 0.2 cm complex cyst in the left breast at 6 o'clock posterior depth 2 cm from the nipple. This abnormality is not significantly changed. There also is a 0.7 cm x 0.3 cm x 0.6 cm irregular complex cyst in the left breast at 4 o'clock posterior depth 3 cm from the nipple. This irregular complex cyst displays posterior acoustic shadowing. This abnormality is not significantly changed. IMPRESSION: PROBABLY BENIGN The 0.4 cm x 0.2 cm x 0.2 cm complex cyst in the left breast at 6 o'clock posterior depth resembles a complicated cyst and is probably benign. The 0.7 cm x 0.3 cm x 0.6 cm irregular complex cyst in the left breast at 4 o'clock posterior depth resembles a complicated cyst and is probably benign. A follow-up bilateral mammogram and a left ultrasound in 6 months is recommended to demonstrate stability. Findings and recommendations were conveyed to the patient during today's evaluation. This exam was interpreted at Station ID: [id number]. Electronically Signed By: Keegan shepherdy/:10/17/2021 12:01:00 letter sent: Followup Recommended Ultrasound BI-RADS: 3 Probably benign
--- NOTE | 2021-10-17 | DI.MG.S_ITS ---
UNILATERAL LEFT DIGITAL DIAGNOSTIC MAMMOGRAM 3D/2D: 10/17/2021 CLINICAL: Short term follow up for the left breast. Comparison is made to exams dated: 03/06/2021 ultrasound, 03/06/2021 mammogram, and 02/02/2021 mammogram - [facility]. There are scattered fibroglandular elements in left breast. Redemonstration of previously described 1.4 cm x 0.8 cm oval focal asymmetry in the left breast at 6 o'clock middle depth 8 cm from the nipple. This is not significantly changed. No other significant masses or calcifications are seen in the breast. IMPRESSION: INCOMPLETE: NEEDS ADDITIONAL IMAGING EVALUATION The 1.4 cm x 0.8 cm oval focal asymmetry in the left breast resembles a cyst or a lymph node and is indeterminate. An ultrasound is recommended for further evaluation and is scheduled to immediately follow this examination. This exam was interpreted at Station ID: [id number]. NOTE: For mammograms, a report in lay terms will be sent to the patient. Approximately 15% of breast malignancies will not be visualized mammographically. In the management of a palpable breast mass, a negative mammogram must not discourage biopsy of a clinically suspicious lesion. Electronically Signed By: Keegan Lama M.D. aty/:10/17/2021 11:49:21 ACR BI-RADS Category 0: Incomplete [id number]
== END ==
PROVIDERS: PCP Nurse Practitioner Family; Referring Provider Nurse Practitioner Family; Visit Provider Nurse Practitioner Family
DX: R92.8 Other abnormal and inconclusive findings on diagnostic imaging of breast (principal); N60.02 Solitary cyst of left breast; Z13.820 Encounter for screening for osteoporosis; M85.851 Other specified disorders of bone density and structure, right thigh; M85.852 Other specified disorders of bone density and structure, left thigh; Z78.0 Asymptomatic menopausal state; Z90.710 Acquired absence of both cervix and uterus; Z79.890 Hormone replacement therapy
CPT/HCPCS: 76642; 77065; 77080; G0279

== ENCOUNTER → 2022-07-04 10:04 | Outpatient (CLI) | payer MEDICARE, OTHER, SELFPAY ==
--- NOTE | 2022-07-04 | DI.US.S_ITS ---
LIMITED ULTRASOUND OF LEFT BREAST AND AXILLA: 07/04/2022 CLINICAL: 6 month follow-up of cysts. Comparison is made to exams dated: 07/04/2022 mammogram, 10/17/2021 ultrasound, 10/17/2021 mammogram, 03/06/2021 ultrasound, and 03/06/2021 mammogram - [facility]. Color flow ultrasound of the left breast axilla was performed on the areas of interest. Harris scale images of the real-time examination were reviewed. There is a cyst in the left breast central to the nipple middle depth. This cyst is hypoechoic with internal echoes. The previously seen cyst in the left breast at 4 o'clock posterior depth is no longer seen. IMPRESSION: PROBABLY BENIGN The cyst in the left breast central to the nipple middle depth is consistent with a complicated cyst, has demonstrated 18 months stability, and is probably benign. A follow-up left ultrasound in 6 months is recommended to demonstrate stability. This exam was interpreted at Station ID: [id number]. Electronically Signed By: Miguelina jerez/:07/04/2022 11:18:13 letter sent: Followup Recommended Ultrasound BI-RADS: 3 Probably benign
--- NOTE | 2022-07-04 | DI.MG.S_ITS ---
BILATERAL DIGITAL DIAGNOSTIC MAMMOGRAM 3D/2D: 07/04/2022 CLINICAL: Short term follow up of the left breast, due for bilateral imaging. Comparison is made to exams dated: 10/17/2021 ultrasound, 10/17/2021 mammogram, 03/06/2021 ultrasound, 03/06/2021 mammogram, 02/02/2021 mammogram - [facility], and 02/08/2019 mammogram - [facility]. There are scattered areas of fibroglandular density in both breasts (category b / 25%-50% glandular tissue). There is an oval focal asymmetry in the left breast at 6 o'clock middle depth. This is not significantly changed. No other significant masses, calcifications, or other findings are seen in either breast. IMPRESSION: INCOMPLETE: NEEDS ADDITIONAL IMAGING EVALUATION The oval focal asymmetry in the left breast is indeterminate. A targeted ultrasound of the left breast is recommended and will be performed immediately following this exam. Based on the Tyrer Cuzick model (a risk assessment model) the patient's lifetime risk is 4.5% and her 10 year risk is 2.2%. According to the ACR, ACS, and NCCN guidelines, an annual breast MRI exam along with mammogram is recommended if the patient's lifetime risk is 20% or greater. This exam was interpreted at Station ID: [id number]. NOTE: For mammograms, a report in lay terms will be sent to the patient. Approximately 15% of breast malignancies will not be visualized mammographically. In the management of a palpable breast mass, a negative mammogram must not discourage biopsy of a clinically suspicious lesion. Electronically Signed By: Miguelina jerez/:07/04/2022 11:14:49 ACR BI-RADS Category 0: Incomplete 3340F
== END ==
PROVIDERS: PCP Nurse Practitioner Family; Referring Provider Nurse Practitioner Family; Visit Provider Nurse Practitioner Family
DX: N60.02 Solitary cyst of left breast (principal); R92.8 Other abnormal and inconclusive findings on diagnostic imaging of breast
CPT/HCPCS: 76642; 77066; G0279

== ENCOUNTER → 2023-08-19 09:25 | Outpatient (CLI) | payer MEDICARE, OTHER, SELFPAY ==
--- NOTE | 2023-08-19 09:28 | DI.CT.S_ITS ---
PROCEDURE: CT LUNG LOW DOSE SCREENING INDICATIONS: Personal history of nicotine dependence TECHNIQUE: Noncontrast 2.0-2.5 mm thick sections acquired from the pulmonary apices to the posterior costophrenic angles. 7 mm thick axial MIP, and 5 mm coronal and sagittal reformats were then acquired. For radiation dose reduction, the following was used: automated exposure control, adjustment of mA and/or kV according to patient size. COMPARISON: None. FINDINGS: Image quality: Diagnostic. Lower Neck: No enlarged lymph nodes. Thyroid: No thyroid nodules which require sonographic follow up, per consensus guidelines. Axillae: No enlarged lymph nodes. Chest Wall: Unremarkable. Bones: Unremarkable. Lungs and Pleura: No pneumothorax or pleural effusions. 2 millimeter solid nodule in the anterior right upper lobe (series 3, image 124). Juxtapleural nodules with smooth margins, favoring benign intrapulmonary lymph nodes. Heart: Heart size is normal. No pericardial effusion. Two vessel coronary calcifications. Thoracic Vessels: The aorta and pulmonary arteries demonstrate normal size. Mediastinum and Kelly: No enlarged lymph nodes. Esophagus: No wall thickening. No hiatal hernia. Upper Abdomen: Nodular liver contour. IMPRESSION: No suspicious pulmonary nodules. LUNG-RADS 2; continued annual screening, if eligible. Clinically Significant Non-pulmonary Findings: Marked coronary artery calcifications for age. Correlate with risk factors and advise counseling. Dictated by: Germain Nuñez M.D. on 08/20/2023 at 9:06 Approved by: Germain Nuñez M.D. on 08/20/2023 at 9:12
== END ==
LOC: CT 09:26
PROVIDERS: PCP Nurse Practitioner Family; Referring Provider Registered Nurse; Visit Provider Registered Nurse
DX: Z12.2 Encounter for screening for malignant neoplasm of respiratory organs (principal); Z87.891 Personal history of nicotine dependence; R91.8 Other nonspecific abnormal finding of lung field; I25.10 Atherosclerotic heart disease of native coronary artery without angina pectoris
CPT/HCPCS: 71271

== ENCOUNTER → 2023-10-26 10:03 | Outpatient (CLI) | payer MEDICARE, OTHER, SELFPAY ==
--- NOTE | 2023-10-26 | DI.RAD.S_ITS ---
PROCEDURE: XR DEXA AXIAL SKELETON INDICATIONS: other disorders of bone density structure COMPARISON: [facility], CR, XR DEXA AXIAL SKELETON, 10/17/2021, 10:56. FINDINGS: Lumbar Spine: Bone mineral density 0.999 g/cm2, T score -0.4. Left Hip: Bone mineral density 0.810 g/cm2, T score -1.1. Left Femoral Neck: Bone mineral density 0.631 g/cm2, T score -2.0. Right Hip: Bone mineral density 0.729 g/cm2, T score -1.7. Right Femoral Neck: Bone mineral density 0.604 g/cm2, T score -2.2. Fracture Risk Calculation (when applicable): 10-year fracture risk of a major osteoporotic fracture 19% and of a hip fracture 3.1%. (T score greater or equal to -1.0 to: NORMAL) (T score from -1.1 to -2.4: OSTEOPENIA) (T score less than or equal to -2.5: OSTEOPOROSIS) IMPRESSION: Osteopenia. Follow-up guidelines as follows: Osteoporosis: Consider a repeat DEXA and Vertebral Fracture Assessment (VFA) exam in 2 years or sooner if medically necessary, to reassess this patient's status. Osteopenia: Consider a repeat DEXA in 2-3 years to reassess this patient's status, or if there is a new clinical indication. Normal: Consider a repeat DEXA in 5 years or sooner, or if there is a new clinical indication. All treatment decisions require clinical judgment and consideration of individual patient factors, including patient preferences, comorbidities, previous drug use, risk factors not captured in the FRAX model (e.g., frailty, falls, vitamin D deficiency, increased bone turnover, interval significant decline in bone density ) and possible under- or over-estimation of fracture risk by FRAX. In addition, the NOF Guide recommends that FDA-approved medical therapies be considered in postmenopausal women and men age >= 50 years with a: * Hip or vertebral (clinical or morphometric) fracture * T-score of <=-2.5 at the spine or hip * Ten-year fracture probability by FRAX of >= 3% for hip fracture or >=20% for major osteoporotic fracture. People with diagnosed cases of osteoporosis or at high risk for fracture should have regular bone mineral density tests. For patients eligible for Medicare, routine testing is allowed once every 2 years. The testing frequency can be increased to one year for patients who have rapidly progressing disease, those who are receiving or discontinuing medical therapy to restore bone mass, or have additional risk factors. Dictated by: Manpreet Armstrong M.D. on 10/26/2023 at 17:31 Approved by: Manpreet Armstrong M.D. on 10/26/2023 at 17:33
--- NOTE | 2023-10-26 | DI.MG.S_ITS ---
BILATERAL DIGITAL DIAGNOSTIC MAMMOGRAM 3D/2D SHORT-TERM FOLLOW-UP: 10/26/2023 CLINICAL: Late 6 month follow up left breast cyst. Comparison is made to exams dated: 07/04/2022 ultrasound, 07/04/2022 mammogram, 10/17/2021 ultrasound, and 10/17/2021 mammogram - [facility]. There are scattered areas of fibroglandular density in both breasts (category b / 25%-50% glandular tissue). There is an oval focal asymmetry in the left breast at 6 o'clock middle depth. This is not significantly changed. No other significant masses, calcifications, or other findings are seen in either breast. IMPRESSION: INCOMPLETE: NEEDS ADDITIONAL IMAGING EVALUATION The oval focal asymmetry in the left breast is indeterminate. A targeted ultrasound of the left breast is recommended and will be performed immediately following this exam. Based on the Tyrer Cuzick model (a risk assessment model) the patient's lifetime risk is 4.3% and her 10 year risk is 2.2%. According to the ACR, ACS, and NCCN guidelines, an annual breast MRI exam along with mammogram is recommended if the patient's lifetime risk is 20% or greater. This exam was interpreted at Station ID: [id number]. NOTE: For mammograms, a report in lay terms will be sent to the patient. Approximately 15% of breast malignancies will not be visualized mammographically. In the management of a palpable breast mass, a negative mammogram must not discourage biopsy of a clinically suspicious lesion. Electronically Signed By: Miguelina Leal M.D. lk/:10/28/2023 15:48:43 ACR BI-RADS Category 0: Incomplete 3340F
--- NOTE | 2023-10-26 | DI.US.S_ITS ---
LIMITED ULTRASOUND OF LEFT BREAST AND AXILLA: 10/26/2023 CLINICAL: Late 6 month follow up left breast cyst. Comparison is made to exams dated: 07/04/2022 ultrasound, 07/04/2022 mammogram, 10/17/2021 ultrasound, and 10/17/2021 mammogram - [facility] Color flow ultrasound of the left breast axilla was performed on the areas of interest. Harris scale images of the real-time examination were reviewed. There is a stable cyst in the left breast at 6 o'clock middle depth. This cyst is hypoechoic with internal echoes. IMPRESSION: BENIGN There is no sonographic evidence of malignancy. The cyst in the left breast is consistent with a stable complicated cyst and is benign. Return to annual mammogram screening schedule is recommended. This exam was interpreted at Station ID: [id number]. Electronically Signed By: Miguelina Leal M.D. lk/:10/28/2023 15:48:00 Entry: - 10/28/2023 16:45:11 letter sent: Normal Exam Ultrasound BI-RADS: 2 Benign
== END ==
LOC: MAMMO 10:04
PROVIDERS: PCP Registered Nurse; Referring Provider Registered Nurse; Visit Provider Registered Nurse
DX: R92.8 Other abnormal and inconclusive findings on diagnostic imaging of breast (principal); N60.02 Solitary cyst of left breast; R92.323 Mammographic fibroglandular density, bilateral breasts; M85.89 Other specified disorders of bone density and structure, multiple sites
CPT/HCPCS: 76642; 77066; 77080; G0279

== ENCOUNTER → 2024-01-07 10:47 | Outpatient (CLI) | payer MEDICARE, OTHER, SELFPAY ==
--- NOTE | 2024-01-07 | DI.RAD.S_ITS ---
PROCEDURE: XR KNEE LT 3V INDICATIONS: left knee pain TECHNIQUE: 3 views of the knee were acquired. COMPARISON: None. FINDINGS: Bones: No fractures or dislocations. Osteophytic lipping at the medial compartment and patellofemoral compartment. No suspicious bony lesions. Soft tissues: No joint effusion. No suspicious soft tissue calcifications. IMPRESSION: Mild left knee DJD. Dictated by: Manpreet Armstrong M.D. on 01/07/2024 at 22:42 Approved by: Manpreet Armstrong M.D. on 01/07/2024 at 22:43
== END ==
LOC: RAD 10:49
PROVIDERS: PCP Registered Nurse; Referring Provider Registered Nurse; Visit Provider Registered Nurse
DX: M17.12 Unilateral primary osteoarthritis, left knee (principal); M25.562 Pain in left knee
CPT/HCPCS: 73562

== ENCOUNTER → 2024-11-14 11:38 | Outpatient (CLI) | payer MEDICARE, OTHER, SELFPAY ==
--- NOTE | 2024-11-14 11:43 | DI.MG.S_ITS ---
MM screening mammo BI: 11/14/2024. BI-RADS: 2 CLINICAL: 69-year old female for bilateral screening mammogram. Tyrer-Cuzick lifetime risk of 4.3%. No personal or first-degree family history of breast cancer. PRIOR EXAMS 10/26/2023, 07/04/2022, 10/17/2021, 03/06/2021, 02/02/2021. MAMMOGRAPHY TECHNIQUE: 2D and 3D (tomosynthesis) digital mammographic views obtained, with additional images as needed for full coverage. Current study was also evaluated with a Computer Aided Detection (CAD) system. DENSITY B. There are scattered areas of fibroglandular density. MAMMOGRAPHY FINDINGS Right: No suspicious mass, asymmetry, microcalcification, or other abnormality seen. Left: Benign-appearing asymmetry noted on the left. There are no suspicious masses, calcifications, or other findings in the breast. IMPRESSION: Right * No evidence of malignancy. Left * No evidence of malignancy with benign findings. RECOMMENDATIONS Bilateral * Annual screening mammography. OVERALL ASSESSMENT CATEGORY BI-RADS-2: Benign. The [employer] recommends annual screening mammography beginning at age 40 for women with average risk of breast cancer. ELECTRONICALLY SIGNED: Keegan Lama M.D. on 11/14/2024 at 05:08:36 PM PT Interpreting Station ID: [id number]
--- NOTE | 2024-11-14 11:43 | DI.RAD.S_ITS ---
PROCEDURE: XR DEXA AXIAL SKELETON INDICATIONS: SCREENING COMPARISON: [facility], CR, XR DEXA AXIAL SKELETON, 10/26/2023, 12:03. [facility], CR, XR DEXA AXIAL SKELETON, 10/17/2021, 10:56. FINDINGS: Lumbar Spine: L1-L4. Bone mineral density 1.043 g/cm2, T score 0.0, significant interval increase 4.5%. Left Femoral Neck: Bone mineral density 0.613 g/cm2, T score -2.1. Left Hip: Bone mineral density 0.797 g/cm2, T score -1.2, no significant interval change. Fracture Risk Calculation (when applicable): 10-year fracture risk of a major osteoporotic fracture 18 percent and of a hip fracture 3.5 percent. (T score greater or equal to -1.0 to: NORMAL) (T score from -1.1 to -2.4: OSTEOPENIA) (T score less than or equal to -2.5: OSTEOPOROSIS) IMPRESSION: Osteopenia. Follow-up guidelines as follows: Osteoporosis: Consider a repeat DEXA and Vertebral Fracture Assessment (VFA) exam in 2 years or sooner if medically necessary, to reassess this patient's status. Osteopenia: Consider a repeat DEXA in 2-3 years to reassess this patient's status, or if there is a new clinical indication. Normal: Consider a repeat DEXA in 5 years or sooner, or if there is a new clinical indication. All treatment decisions require clinical judgment and consideration of individual patient factors, including patient preferences, comorbidities, previous drug use, risk factors not captured in the FRAX model (e.g., frailty, falls, vitamin D deficiency, increased bone turnover, interval significant decline in bone density ) and possible under- or over-estimation of fracture risk by FRAX. In addition, the NOF Guide recommends that FDA-approved medical therapies be considered in postmenopausal women and men age >= 50 years with a: * Hip or vertebral (clinical or morphometric) fracture * T-score of <=-2.5 at the spine or hip * Ten-year fracture probability by FRAX of >= 3% for hip fracture or >=20% for major osteoporotic fracture. Dictated by: Manpreet Armstrong M.D. on 11/15/2024 at 7:22 Approved by: Manpreet Armstrong M.D. on 11/15/2024 at 7:24
== END ==
DX: Z12.31 Encounter for screening mammogram for malignant neoplasm of breast (principal); M85.89 Other specified disorders of bone density and structure, multiple sites
CPT/HCPCS: 77063; 77067; 77080